=== PATIENT | female | born 1985 | race Hispanic/Latino ===

== ENCOUNTER 2018-01-30 15:00 | Outpatient (RCR) | payer BC | END 2018-01-31 | LOC: PT 15:00 | PROVIDERS: ATTEND Specialist | DX: M22.41 Chondromalacia patellae, right knee (principal); M22.2X1 Patellofemoral disorders, right knee; M25.561 Pain in right knee; M25.661 Stiffness of right knee, not elsewhere classified; M62.81 Muscle weakness (generalized) ==

== ENCOUNTER 2018-02-16 15:00 | Outpatient (RCR) | payer BC | END 2018-03-02 | LOC: PT 15:00 | PROVIDERS: ATTEND Specialist | DX: M22.41 Chondromalacia patellae, right knee (principal); M22.2X1 Patellofemoral disorders, right knee; M25.561 Pain in right knee; M25.661 Stiffness of right knee, not elsewhere classified; M62.81 Muscle weakness (generalized) ==